=== PATIENT | male | born 1990 | race Caucasian/White ===

== ENCOUNTER 2021-12-31 12:32 | Emergency (ER) | payer SELFPAY ==
[~2021-12-31] VITALS: Ht 175.3 cm; Wt 77.7 kg
[2021-12-31 13:17] LABS: BASOPHILS # (AUTO) 0.1 X10'3 (0-0.2); BASOPHILS % (AUTO) 0.5 % (0-1); EOSINOPHILS # (AUTO) 0.1 X10'3 (0-0.9); EOSINOPHILS % (AUTO) 0.9 % (0-6); HEMOGLOBIN 15.9 g/dl (14.0-17.9); LYMPHOCYTES % (AUTO) 17.2 % (21-51); MEAN CORPUSCULAR HGB CONC 34.5 g/dL (33.0-36.5); MEAN CORPUSCULAR VOLUME 95.7 FL (78-98); MEAN PLATELET VOLUME 8.3 FL (7.4-10.4); MONOCYTES % (AUTO) 8.3 % (2-12); NEUTROPHILS # (AUTO) 8.5 X10'3 (1.8-7.7); NEUTROPHILS % (AUTO) 73.1 % (42-75); PLATELET COUNT 278 X10'3 (140-440); RED CELL DISTRIBUTION WIDTH 12.3 % (11.5-14.5); WHITE BLOOD COUNT 11.6 X10'3 (4.5-11.0)
[2021-12-31 13:32] LABS: ALANINE AMINOTRANSFERASE 23 U/L (12-78); ALBUMIN 4.8 G/DL (3.4-5.0); ALBUMIN/GLOBULIN RATIO 1.4 (1.1-1.5); ALKALINE PHOSPHATASE 56 IU/L (46-116); ANION GAP 12 (8-16); ASPARTATE AMINO TRANSFERASE 22 U/L (10-37); BILIRUBIN,TOTAL 1.1 MG/DL (0.1-1.0); BLOOD UREA NITROGEN 17 MG/DL (7-18); BUN/CREATININE RATIO 15.7 (5.4-32.0); CALCIUM 9.4 MG/DL (8.5-10.1); CHLORIDE 107 MMOL/L (99-107); CREATININE 1.08 MG/DL (0.60-1.10); GLUCOSE 89 MG/DL (70-104); POTASSIUM 4.4 MMOL/L (3.5-5.1); SODIUM 145 MMOL/L (135-145); TOTAL CARBON DIOXIDE 26.4 MMOL/L (24-32); TOTAL PROTEIN 8.2 G/DL (6.4-8.2); eGFR 79 ML/MIN
[2021-12-31] MEDS ORDERED: normal saline 1000ML IV soln IVB ONE (14:50)
--- NOTE | 2021-12-31 15:57 | NUR ---
pt amb with steady gait around ER, no dizziness/lightheadness, pt is alert and oriented x3,
[2021-12-31 16:00] VITALS: BP 152/97
== END 2021-12-31 16:21 | disposition home or self-care (01) ==
LOC: ER 12:33
DX: T67.1XXA Heat syncope, initial encounter (principal); W18.39XA Other fall on same level, initial encounter; Y93.89 Activity, other specified; Y92.89 Other specified places as the place of occurrence of the external cause; Y99.8 Other external cause status
CPT/HCPCS: 36415; 71045; 80053; 84484; 85025; 93005; 96360; 99285; J7030

== ENCOUNTER 2022-01-27 14:50 | Emergency (ER) | payer MEDICAID ==
[~2022-01-27] VITALS: Ht 175.3 cm; Wt 81.0 kg
[2022-01-27 15:33] VITALS: BP 146/100
[2022-01-27] MEDS ORDERED: triamcinolone acetonide 40mg/ml inj IM ONE (16:20)
[2022-01-27] MEDS ORDERED: METH4TAB3 PO (16:21)
== END 2022-01-27 16:47 | disposition home or self-care (01) ==
LOC: ER 14:50
DX: L30.8 Other specified dermatitis (principal)
CPT/HCPCS: 96372; 99283; J3301

== ENCOUNTER 2022-09-03 12:02 | Emergency (ER) | payer MEDICAID ==
[~2022-09-03] VITALS: Ht 175.3 cm; Wt 75.0 kg
[~2022-09-03 12:02] MED LIST: METH4TAB3 PO
[2022-09-03 12:06] VITALS: BP 144/90
[2022-09-03] MEDS ORDERED: ketorolac tromethamine 15mg/ml inj. IM ONE (14:05)
== END 2022-09-03 14:15 | disposition home or self-care (01) ==
LOC: ER 12:03
DX: M54.59 Other low back pain (principal); Z79.899 Other long term (current) drug therapy
CPT/HCPCS: 72100; 72220; 99284

== ENCOUNTER 2022-10-11 10:40 | Emergency (ER) | payer MEDICAID ==
[~2022-10-11] VITALS: Ht 175.3 cm; Wt 77.8 kg
[2022-10-11 10:48] VITALS: BP 160/108
--- NOTE | 2022-10-11 11:36 | NUR ---
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
--- NOTE | 2022-10-11 11:38 | NUR ---
EST TIME 30 MIN FOR BEND UP.
--- NOTE | 2022-10-11 11:50 | NUR ---
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
== END 2022-10-11 12:01 | disposition home or self-care (01) ==
LOC: ER 10:41
DX: S60.222A Contusion of left hand, initial encounter (principal); Z79.899 Other long term (current) drug therapy; Z72.89 Other problems related to lifestyle; W22.8XXA Striking against or struck by other objects, initial encounter; Y93.89 Activity, other specified; Y92.89 Other specified places as the place of occurrence of the external cause; Y99.8 Other external cause status
CPT/HCPCS: 73130; 99283